=== PATIENT | female | born 1960 | race Hispanic/Latino ===

== ENCOUNTER 2017-10-18 06:55 | Inpatient (IN) | payer MEDICARE ==
[2017-10-15 16:05] VITALS: BP 119/77
[2017-10-15 16:54] LABS: BILIRUBIN,URINE Negative (NEGATIVE); COLOR,URINE Yellow (YELLOW); GLUCOSE, URINE (UA) Negative (NEGATIVE); KETONES,URINE Negative (NEGATIVE); LEUKOCYTE ESTERASE ,URINE Small (NEGATIVE); NITRATE,URINE Negative (NEGATIVE); OCCULT BLOOD,URINE Small (NEGATIVE); PH,URINE 5.5 (5.0-8.0); PROTEIN,URINE Negative (NEGATIVE); UROBILINOGEN,URINE 0.2 mg/dL (0.2-1.0)
[2017-10-15 16:55] LABS: APPEARANCE,URINE CLEAR (CLEAR)
[2017-10-15 18:00] LABS: BACTERIA,URINE Rare /HPF (None Seen); SQUAMOUS EPITHELIAL CELL,UR Rare /LPF (0-2); WBC,URINE 0-1 /HPF (0-1)
[~2017-10-18] VITALS: Ht 151.1 cm; Wt 82.0 kg
[2017-10-18] VITALS (21 sets, daily range): BP systolic 99–143; BP diastolic 40–89
[~2017-10-18 06:55] MED LIST: ALPR0.5T8 PO; AMLO5TAB2 PO; CEFAZOLIN SODIUM 1 GM VIAL IVP SCH; CIPR-245 PO; CITA-107 PO; FLUT16H NASAL; HYDR12.54 PO; MECL-111 PO; OMEP40CA37 PO; OXYC10TA48 PO; PRAV10TA39 PO; SOLI5 PO; TOPI25TA48 PO; ZOLP10TA6 PO
[2017-10-18] MEDS ORDERED: LACTATED RINGERS 1000ML 1,000 ML IV ONE (08:10)
[2017-10-18] MEDS ORDERED: CELECOXIB 200 MG CAP ONE (08:22)
[2017-10-18] MEDS ORDERED: ACETAMINOPHEN EXTRA STRENGTH 500 MG TABLET ONE (08:22)
[2017-10-18] MEDS ORDERED: KETOROLAC TROMETHAMINE 15MG/ML ONE (08:22)
[2017-10-18] MEDS ORDERED: GLYCOPYRROLATE 0.2 MG/ML 5 ML VIAL ONE (09:50)
[2017-10-18] MEDS ORDERED: LIDOCAINE PF 2% 5ML ABBOJECT ONE (09:50)
[2017-10-18] MEDS ORDERED: DEXAMETHASONE SOD PHOSPHATE 10MG/ML 1ML VIAL ONE (09:50)
[2017-10-18] MEDS ORDERED: MIDAZOLAM HCL 1 MG/ML 2ML VIAL ONE (09:51)
[2017-10-18] MEDS ORDERED: PROPOFOL 10 MG/ML 20ML VIAL IV ONE (09:51)
[2017-10-18] MEDS ORDERED: FENTANYL CITRATE PF 50 MCG/1 ML 2ML VIAL ONE (09:51)
[2017-10-18] MEDS ORDERED: CEFAZOLIN SODIUM 1 GM VIAL ONE (09:55)
[2017-10-18] MEDS ORDERED: TRANEXAMIC ACID 1000MG/10ML IV ONE (11:34)
[2017-10-18] MEDS: SODIUM CHLORIDE 0.9% 1000ML 1,000 ML IV SCH ×2 (11:49→21:59)
[2017-10-18] MEDS: PSYLLIUM SEED 1 EACH PACKET PO SCH (12:00)
[2017-10-18] MEDS ORDERED: FERROUS FUMARATE 324 MG TABLET PO PRN (12:00)
[2017-10-18] MEDS ORDERED: OXYCODONE HCL 5 MG TAB PO PRN (12:00)
[2017-10-18] MEDS ORDERED: TEMAZEPAM 15 MG CAPSULE PO PRN (12:00)
[2017-10-18] MEDS ORDERED: POTASSIUM CHLORIDE 10% ELIXIR 20 MEQ/15 ML UDCUP PO PRN (12:00)
[2017-10-18] MEDS ORDERED: DIPHENHYDRAMINE HCL 25 MG CAPSULE PO PRN (12:00)
[2017-10-18] MEDS ORDERED: LIDOCAINE HCL-MPF 1% 2ML VIAL IVP PRN (12:00)
[2017-10-18] MEDS ORDERED: KETOROLAC TROMETHAMINE 15MG/ML IV PRN (12:00)
[2017-10-18] MEDS ORDERED: POTASSIUM CHLORIDE 20MEQ/100ML 100 ML IV PRN (12:00)
[2017-10-18] MEDS ORDERED: TRAMADOL HCL 50 MG TABLET PO PRN (12:00)
[2017-10-18] MEDS ORDERED: PROMETHAZINE HCL 25 MG/ML 1ML AMPULE IM PRN (12:00)
[2017-10-18] MEDS: ACETAMINOPHEN 325 MG TAB PO SCH ×2 (12:00→18:01)
[2017-10-18] MEDS ORDERED: DiphenhydrAMINE HCL 50 MG/ML VIAL IVP PRN (12:00)
[2017-10-18] MEDS ORDERED: CALCIUM CARBONATE 500 MG TABLET PO PRN (12:00)
[2017-10-18] MEDS ORDERED: MEPERIDINE-PF 25 MG/ML SYG ONE (12:31)
[2017-10-18] MEDS ORDERED: MECLIZINE HCL 25 MG TABLET PO PRN (15:00)
[2017-10-18] MEDS: INSULIN HUMULIN R 100 UNIT/ML 3ML SQ SCH ×2 (16:30→21:00)
[2017-10-18] MEDS ORDERED: CEFAZOLIN 2GM / 50 ML 50 ML IV SCH (17:00)
[2017-10-18] MEDS: CEFAZOLIN SODIUM 1 GM VIAL IVP SCH (18:00)
[2017-10-18] MEDS: PREGABALIN 25 MG CAP PO SCH (20:09)
[2017-10-18] MEDS: ASPIRIN 325 MG TABLET PO SCH (20:09)
[2017-10-18] MEDS: CELECOXIB 200 MG CAP PO SCH (20:09)
[2017-10-18] MEDS: FAMOTIDINE 20MG TAB 20 MG TAB PO SCH (20:09)
[2017-10-18] MEDS ORDERED: TOPIRAMATE 25 MG TABLET PO SCH (21:00)
[2017-10-18] MEDS ORDERED: SOLIFENACIN SUCCINATE 5 MG PO SCH (21:00)
[2017-10-18] MEDS ORDERED: **HM**Pravastatin Sodium 10 MG PO SCH (21:00)
[2017-10-18] MEDS ORDERED: ZOLPIDEM TARTRATE 5 MG TAB PO SCH (21:00)
[2017-10-18] MEDS ORDERED: ALPRAZOLAM 0.5 MG TABLET PO SCH (21:00)
[2017-10-19] MEDS ORDERED: WATER FOR INJECTION,STERILE 5 ML VIAL ONE (00:34)
[2017-10-19] MEDS: CEFAZOLIN SODIUM 1 GM VIAL IVP SCH (00:38)
[2017-10-19] MEDS: ACETAMINOPHEN 325 MG TAB PO SCH ×4 (00:39→17:57)
[2017-10-19 04:39] VITALS: BP 134/86
[2017-10-19 05:30] LABS: CREATININE 0.6 mg/dL (0.5-1.5); POTASSIUM 3.5 mmol/L (3.5-5.1)
[2017-10-19] MEDS: INSULIN HUMULIN R 100 UNIT/ML 3ML SQ SCH ×3 (05:41→16:30)
[2017-10-19 07:19] LABS: HEMATOCRIT 37.9 % (36-48); MEAN CORPUSCULAR HEMOGLOBIN 27.3 pg (27.0-33.0); MEAN CORPUSCULAR HGB CONC 33.6 g/dL (32.0-36.0); MEAN CORPUSCULAR VOLUME 81.5 fL (79-99); PLATELET COUNT (AUTO) 319 K/uL (130-400); RED BLOOD CELL COUNT(AUTO) 4.65 MIL/uL (4.00-5.50); RED CELL DISTRIBUTION WIDTH 13.1 % (11.0-15.5); WHITE BLOOD COUNT (AUTO) 13.8 K/uL (4.8-10.8)
[2017-10-19] MEDS: SODIUM CHLORIDE 0.9% 1000ML 1,000 ML IV SCH (07:49)
[2017-10-19 08:25] VITALS: BP 144/83
[2017-10-19] MEDS ORDERED: PANTOPRAZOLE SODIUM 40 MG TABLET.DR PO SCH (09:00)
[2017-10-19] MEDS ORDERED: AMLODIPINE BESYLATE 5 MG TAB PO SCH (09:00)
[2017-10-19] MEDS ORDERED: HYDROCHLOROTHIAZIDE 25 MG TABLET PO SCH (09:00)
[2017-10-19] MEDS ORDERED: POLYETHYLENE GLYCOL 3350 17 GM POWD.PACK PO SCH (09:00)
[2017-10-19] MEDS ORDERED: CITALOPRAM 20 MG TABLET PO SCH (09:00)
[2017-10-19] MEDS: PREGABALIN 25 MG CAP PO SCH (09:16)
[2017-10-19] MEDS: POTASSIUM CHLORIDE 20 MEQ ERTAB PO PRN ×2 (09:16→12:39)
[2017-10-19] MEDS: ASPIRIN 325 MG TABLET PO SCH (09:16)
[2017-10-19] MEDS: FAMOTIDINE 20MG TAB 20 MG TAB PO SCH (09:17)
[2017-10-19] MEDS: CELECOXIB 200 MG CAP PO SCH (09:17)
[2017-10-19 11:25] VITALS: BP 129/76
[2017-10-19] MEDS: PSYLLIUM SEED 1 EACH PACKET PO SCH (12:40)
[2017-10-19] MEDS: OXYCODONE HCL 5 MG TAB PO PRN ×2 (12:50→17:59)
[2017-10-19 16:27] VITALS: BP 126/74
[2017-10-19] MEDS ORDERED: ASPI-1012 PO (18:42)
[2017-10-20] MEDS ORDERED: BISACODYL 5 MG TABLET.DR PO PRN (12:00)
[2017-10-21] MEDS ORDERED: BISACODYL 10 MG SUPP.RECT RC PRN (12:00)
== END 2017-10-19 20:30 | disposition home health service (06) | DRG 465 ==
LOC: EDBD → DAHIP 06:55 → 4AH 12:47
PROVIDERS: ADMIT Orthopaedic Surgery; ATTEND Orthopaedic Surgery
PROC: 0SPC0JZ Removal of Synthetic Substitute from Right Knee Joint, Open Approach (ICD-10-PCS; principal; 2017-10-18)
DX: T84.092A Other mechanical complication of internal right knee prosthesis, initial encounter (principal); E66.9 Obesity, unspecified; E78.5 Hyperlipidemia, unspecified; I10 Essential (primary) hypertension; K21.9 Gastro-esophageal reflux disease without esophagitis; F41.9 Anxiety disorder, unspecified; F32.9 Major depressive disorder, single episode, unspecified; G89.29 Other chronic pain; Y83.8 Other surgical procedures as the cause of abnormal reaction of the patient, or of later complication, without mention of misadventure at the time of the procedure; Z68.35 Body mass index [BMI] 35.0-35.9, adult; Y92.89 Other specified places as the place of occurrence of the external cause; Z96.652 Presence of left artificial knee joint
CPT/HCPCS: 36415; 80048; 81001; 82948; 85027; 85651; 87070; 87076; 87205; 88300; 89051; 96374; A4218; C1713; J0690; J1100; J1885; J2001; J2175; J2250; J2704; J3010; J3490; J7030; J7120

== ENCOUNTER → 2019-05-17 15:45 | Inpatient (IN) | payer MEDICARE ==
[2017-10-18 18:44] LABS: APPEARANCE BODY FLUID CLOUDY (CLEAR); COLOR,BODY FLUID YELLOW (LT YELLOW); SPECIMENTYPE,BODY FLUID SYNOVIAL
[2017-10-18 18:47] LABS: BODY FLUID RBC 5040 /cu. mm.; BODY FLUID WBC 2960 /cu. mm.
[2017-10-18 18:48] LABS: BF BASOPHIL 0 %; BF EOSINOPHIL 0 %; BF LYMPHOCYTE 11 %; BF MONOCYTE 4 %
[2019-05-12 14:10] VITALS: BP 109/68
[2019-05-12 14:12] LABS: BASOPHILS % (AUTO) 1.2 % (0.0-5.0); EOSINOPHILS % (AUTO) 0.6 % (0.0-8.0); HEMATOCRIT 38.6 % (36-48); LYMPHOCYTES % (AUTO) 26.7 % (21.0-51.0); MEAN CORPUSCULAR HEMOGLOBIN 28.5 pg (27.0-33.0); MEAN CORPUSCULAR HGB CONC 33.7 g/dL (32.0-36.0); MEAN CORPUSCULAR VOLUME 84.5 fL (79-99); MONOCYTES % (AUTO) 8.2 % (3.0-13.0); NEUTROPHILS % (AUTO) 63.3 % (40.0-77.0); PLATELET COUNT (AUTO) 281 K/uL (130-400); RED BLOOD CELL COUNT(AUTO) 4.57 MIL/uL (4.00-5.50); RED CELL DISTRIBUTION WIDTH 13.4 % (11.0-15.5); WHITE BLOOD COUNT (AUTO) 7.6 K/uL (4.8-10.8)
[2019-05-12 14:14] LABS: APPEARANCE,URINE CLEAR (CLEAR); BILIRUBIN,URINE NEGATIVE (NEGATIVE); COLOR,URINE YELLOW (YELLOW); GLUCOSE, URINE (UA) NEGATIVE (NEGATIVE); KETONES,URINE 5 mg/dL (NEGATIVE); LEUKOCYTE ESTERASE ,URINE NEGATIVE (NEGATIVE); NITRATE,URINE NEGATIVE (NEGATIVE); OCCULT BLOOD,URINE NEGATIVE (NEGATIVE); PROTEIN,URINE NEGATIVE (NEGATIVE)
[2019-05-12 14:20] LABS: CREATININE 0.9 mg/dL (0.5-1.5); POTASSIUM 4.7 mmol/L (3.5-5.1)
[2019-05-12 14:22] LABS: BACTERIA,URINE Rare /HPF (None Seen); HYALINE CASTS, URINE 0-1 /LPF (0-1 /LPF); MUCUS,URINE Rare LPF (None Seen); RBC,URINE 0-1 /HPF (0-1); SQUAMOUS EPITHELIAL CELL,UR Rare /HPF (0-2)
[2019-05-12 14:23] LABS: INR 0.95 (0.85-1.15)
--- NOTE | 2019-05-12 17:56 | NUR ---
LABS INFORMED DR. RAMOS OF ABNORMAL UA. NO ORDERS RECEIVED. PROCEED WITH PLANNED PROCEDURE.
[2019-05-15] VITALS (23 sets, daily range): BP systolic 14–117; BP diastolic 58–84
[2019-05-15] MEDS: CEFAZOLIN SODIUM 1 GM VIAL IVP SCH ×4 (06:00→23:53)
[2019-05-15] MEDS: SODIUM CHLORIDE 0.9% 1000ML 1,000 ML IV SCH ×2 (11:30→21:48)
[2019-05-15] MEDS: ACETAMINOPHEN EXTRA STRENGTH 500 MG TABLET PO SCH ×2 (11:30→19:46)
[2019-05-15] MEDS: OXYCODONE HCL 5 MG TAB PO PRN ×2 (17:16→21:20)
[2019-05-15] MEDS: PREGABALIN 25 MG CAP PO SCH (19:46)
[2019-05-15] MEDS: ZOLPIDEM TARTRATE 5 MG TAB PO SCH (19:46)
[2019-05-15] MEDS: CELECOXIB 200 MG CAP PO SCH (19:46)
[2019-05-15] MEDS: ALPRAZOLAM 0.5 MG TABLET PO SCH (19:46)
[2019-05-15] MEDS: TOPIRAMATE 25 MG TABLET PO SCH (19:48)
[2019-05-16 00:12] VITALS: BP 106/58
[2019-05-16] MEDS: OXYCODONE HCL 5 MG TAB PO PRN ×5 (01:29→21:36)
[2019-05-16] MEDS: ACETAMINOPHEN EXTRA STRENGTH 500 MG TABLET PO SCH ×3 (03:14→19:26)
[2019-05-16 04:13] VITALS: BP 133/76
[2019-05-16 05:08] LABS: HEMATOCRIT 28.5 % (36-48); MEAN CORPUSCULAR HEMOGLOBIN 28.4 pg (27.0-33.0); MEAN CORPUSCULAR HGB CONC 33.7 g/dL (32.0-36.0); MEAN CORPUSCULAR VOLUME 84.4 fL (79-99); PLATELET COUNT (AUTO) 209 K/uL (130-400); RED BLOOD CELL COUNT(AUTO) 3.37 MIL/uL (4.00-5.50); RED CELL DISTRIBUTION WIDTH 13.7 % (11.0-15.5)
[2019-05-16 05:37] LABS: CREATININE 0.5 mg/dL (0.5-1.5); POTASSIUM 3.2 mmol/L (3.5-5.1)
[2019-05-16] MEDS: CALCIUM CARBONATE 500 MG TABLET PO PRN ×2 (06:23→19:26)
[2019-05-16] MEDS: POTASSIUM CHLORIDE 20 MEQ ERTAB PO PRN ×3 (06:24→17:30)
[2019-05-16] MEDS: SODIUM CHLORIDE 0.9% 1000ML 1,000 ML IV SCH (06:24)
[2019-05-16] MEDS: **HM** VIT D3 5000 UNITS PO SCH (07:21)
[2019-05-16] MEDS: PREGABALIN 25 MG CAP PO SCH ×2 (08:01→19:25)
[2019-05-16] MEDS: CELECOXIB 200 MG CAP PO SCH ×2 (08:01→19:26)
[2019-05-16] MEDS: PANTOPRAZOLE SODIUM 40 MG TABLET.DR PO SCH (08:01)
[2019-05-16] MEDS: CYANOCOBALAMIN (VITAMIN B-12) 1,000 MCG TABLET PO SCH (08:01)
[2019-05-16] MEDS: TOPIRAMATE 25 MG TABLET PO SCH ×2 (08:01→19:26)
[2019-05-16] MEDS: CITALOPRAM 20 MG TABLET PO SCH (08:01)
[2019-05-16] MEDS: POLYETHYLENE GLYCOL 3350 17 GM POWD.PACK PO SCH (08:02)
[2019-05-16] MEDS: ENOXAPARIN SODIUM 30 MG/0.3 ML SQ SCH (08:02)
[2019-05-16 08:34] VITALS: BP 142/89
[2019-05-16 11:30] VITALS: BP 103/63
--- NOTE | 2019-05-16 11:30 | NUR ---
INITIAL AND REFERRAL MET W PT AND DAUGHTER PT S/P SHOULDER SURGERY LIVES [place], LUCIA SANTANA ADLS, DOES NOT USE A WALKER,DOES NOT DRIVE, DAUGHTER SUPPLIES TANSPORT, ADDRESS AND PHONE NUMBERS UPDATED IN SYSTEM, REFERRAL TO [facility] AND CALLBACK REC'D THAT THEY WILL ACCEPT PT Addendum: 05/17/19 at 1999 by SAURAV SNELL RN CM Amended: Links added.
[2019-05-16 16:04] VITALS: BP 99/59
[2019-05-16] MEDS: ZOLPIDEM TARTRATE 5 MG TAB PO SCH (19:26)
[2019-05-16] MEDS: ALPRAZOLAM 0.5 MG TABLET PO SCH (19:26)
[2019-05-16 20:06] VITALS: BP 109/62
[~2019-05-17] VITALS: Ht 149.9 cm; Wt 64.1 kg
[2019-05-17 00:12] VITALS: BP 102/62
[2019-05-17] MEDS: OXYCODONE HCL 5 MG TAB PO PRN ×3 (00:54→11:03)
[2019-05-17] MEDS: ACETAMINOPHEN EXTRA STRENGTH 500 MG TABLET PO SCH ×2 (02:02→11:30)
[2019-05-17 04:12] VITALS: BP 109/68
[2019-05-17 07:59] VITALS: BP 108/64
[2019-05-17] MEDS: **HM** VIT D3 5000 UNITS PO SCH (09:00)
[2019-05-17] MEDS: CITALOPRAM 20 MG TABLET PO SCH (11:04)
[2019-05-17] MEDS: CELECOXIB 200 MG CAP PO SCH (11:04)
[2019-05-17] MEDS: PANTOPRAZOLE SODIUM 40 MG TABLET.DR PO SCH (11:04)
[2019-05-17] MEDS: PREGABALIN 25 MG CAP PO SCH (11:04)
[2019-05-17] MEDS: CYANOCOBALAMIN (VITAMIN B-12) 1,000 MCG TABLET PO SCH (11:04)
[2019-05-17] MEDS: TOPIRAMATE 25 MG TABLET PO SCH (11:05)
[2019-05-17] MEDS: POLYETHYLENE GLYCOL 3350 17 GM POWD.PACK PO SCH (11:05)
[2019-05-17] MEDS: ENOXAPARIN SODIUM 30 MG/0.3 ML SQ SCH (11:07)
[2019-05-17 11:23] VITALS: BP 104/69
--- NOTE | 2019-05-17 14:00 | NUR ---
DISCHARGE DISCHARGE TEACHING PROVIDED TO PATIENT REGARDING DR. RAMOS DISCHARGE ORDERS (DRESSING CHANGE, ARM SLING USE WHEN AMBULATING, KEEP DRESSING DRY AND INTACT, CONTINUE HOME MEDICATIONS PRESCRIBED, DISCHARGE ACTIVITY). INFORMED PATIENT OF SCHEDULED F/U APPT WIT DR. RAMOS. PATIENT VERBALIZED UNDERSTANDING OF DISCHARGE ORDERS. PERFORMED LEFT SHOULDER INCISION DRESSING CHANGE AND REMOVED LEFT SHOULD HEMOVAC DRESSING. HEMOVAC REMOVED, NO RESISTANCE NOTED UPON REMOVAL, DRAIN TIP INTACT. LEFT SHOULDER INCISION APPROXIMATED AND ASYMPTOMATIC, CLEANSED WITH BETADINE, COVERED WITH NONADHERENT GAUZE AND SECURED WITH TEGADERM. REPLACED LEFT ARM SLING AFTER DRESSING CHANGE. REMOVED 20GIV FROM RIGHT HAND, CATHETER TIP INTACT. NURSE REPORT GIVEN TO [facility] OF [facility]. KRISTA PIERCE INFORMED OF DR. RAMOS DISCHARGE ORDERS. FAXED DR. RAMOS DISCHARGE ORDERS TO [facility].
[~2019-05-17 15:45] MED LIST changes: +ACETAMINOPHEN EXTRA STRENGTH 500 MG TABLET ONE; -AMLO5TAB2 PO; +BISACODYL 10 MG SUPP.RECT RC PRN; +CALC-866 PO; +CEFAZOLIN SODIUM 1 GM VIAL IRRIG ONE; -CEFAZOLIN SODIUM 1 GM VIAL IVP SCH; +CEFAZOLIN SODIUM 1 GM VIAL ONE; +CELECOXIB 200 MG CAP ONE; -CIPR-245 PO; +DEXAMETHASONE SOD PHOSPHATE 10MG/ML 1ML VIAL ONE; +DiphenhydrAMINE HCL 50 MG/ML VIAL IVP PRN; +EPHEDRINE SULFATE 50 MG/ML AMPULE ONE; +FE FUMARATE/FA/MV, MIN COMB#15 1 TAB PO PRN; +FENTANYL CITRATE PF 50 MCG/1 ML 2ML VIAL ONE; -FLUT16H NASAL; +GLYCOPYRROLATE 1 MG/5 ML SYRINGE ONE; -HYDR12.54 PO; +KETOROLAC TROMETHAMINE 15MG/ML IV PRN; +LABETALOL HCL 5 MG/ML 20ML VIAL IV ONE; +LACTATED RINGERS 1000ML 1,000 ML IV ONE; +LIDOCAINE HCL-MPF 1% 2ML VIAL IV PRN; +LIDOCAINE PF 2% 5ML ABBOJECT ONE; +MECLIZINE HCL 25 MG TABLET PO PRN; +METOCLOPRAMIDE 10 MG/2 ML VIAL ONE; +MIDAZOLAM HCL 1 MG/ML 2ML VIAL ONE; +NEOSTIGMINE 5MG/5ML SYR IV ONE; +OMEP40CA13 PO; -OMEP40CA37 PO; +ONDANSETRON HCL 4 MG/2 ML VIAL IVP PRN; +ONDANSETRON HCL 4 MG/2 ML VIAL ONE; +OXYCODONE HCL 10 MG TAB.SR.12H PO ONE; +OXYCODONE HCL 5 MG TAB PO PRN; +POTASSIUM CHLORIDE 10% ELIXIR 20 MEQ/15 ML UDCUP PO PRN; +POTASSIUM CHLORIDE 20MEQ/100ML 100 ML IV PRN; -PRAV10TA39 PO; +PROPOFOL 10 MG/ML 20ML VIAL IV ONE; +ROCURONIUM 10MG/1ML SYR 10 MG/ML ML ONE; +ROPIVACAINE 0.5% 5MG/ML 30ML IJ ONE; -SOLI5 PO; +SUCCINYLCHOLINE 200MG/10ML SYR ONE; +TRAMADOL HCL 50 MG TABLET PO PRN; +TRANEXAMIC ACID 1000MG/10ML IV ONE; +VITAMIN B12 PO
== END | disposition home health service (06) | DRG 483 ==
LOC: EDBD 10-15 15:30 → EDSTATUS 10-15 15:30 → MERGE 10-18 11:00 → DAHIP 05-15 07:03 → 4AH 05-15 12:36
PROVIDERS: ADMIT Orthopaedic Surgery; ATTEND Orthopaedic Surgery
PROC: 0RRK00Z Replacement of Left Shoulder Joint with Reverse Ball and Socket Synthetic Substitute, Open Approach (ICD-10-PCS; principal; 2019-05-15 08:31)
DX: M12.812 Other specific arthropathies, not elsewhere classified, left shoulder (principal); M75.102 Unspecified rotator cuff tear or rupture of left shoulder, not specified as traumatic; I10 Essential (primary) hypertension; E78.5 Hyperlipidemia, unspecified; F41.9 Anxiety disorder, unspecified; F32.9 Major depressive disorder, single episode, unspecified; K21.9 Gastro-esophageal reflux disease without esophagitis; E66.9 Obesity, unspecified; Z68.28 Body mass index [BMI] 28.0-28.9, adult; Z98.51 Tubal ligation status; G89.29 Other chronic pain
CPT/HCPCS: 36415; 73030; 80048; 81001; 85025; 85027; 85610; 85651; 87070; 87076; 87205; 88304; 88311; 89051; 96374; 97039; A4565; C1713; G0378; J0330; J0690; J1100; J1650; J2001; J2250; J2405; J2704; J2710; J2765; J2795; J3010; J3490; J7030; J7120

== ENCOUNTER 2020-07-01 09:00 | Inpatient (IN) | payer MEDICARE ==
[~2020-07-01] VITALS: Ht 149.9 cm; Wt 61.8 kg
[~2020-07-01 09:00] MED LIST changes: -ACETAMINOPHEN EXTRA STRENGTH 500 MG TABLET ONE; -BISACODYL 10 MG SUPP.RECT RC PRN; -CALC-866 PO; -CEFAZOLIN SODIUM 1 GM VIAL IRRIG ONE; -CEFAZOLIN SODIUM 1 GM VIAL ONE; -CELECOXIB 200 MG CAP ONE; -CITA-107 PO; -DEXAMETHASONE SOD PHOSPHATE 10MG/ML 1ML VIAL ONE; -DiphenhydrAMINE HCL 50 MG/ML VIAL IVP PRN; -EPHEDRINE SULFATE 50 MG/ML AMPULE ONE; -FE FUMARATE/FA/MV, MIN COMB#15 1 TAB PO PRN; -FENTANYL CITRATE PF 50 MCG/1 ML 2ML VIAL ONE; -GLYCOPYRROLATE 1 MG/5 ML SYRINGE ONE; -KETOROLAC TROMETHAMINE 15MG/ML IV PRN; -LABETALOL HCL 5 MG/ML 20ML VIAL IV ONE; -LACTATED RINGERS 1000ML 1,000 ML IV ONE; -LIDOCAINE HCL-MPF 1% 2ML VIAL IV PRN; -LIDOCAINE PF 2% 5ML ABBOJECT ONE; -MECL-111 PO; -MECLIZINE HCL 25 MG TABLET PO PRN; -METOCLOPRAMIDE 10 MG/2 ML VIAL ONE; -MIDAZOLAM HCL 1 MG/ML 2ML VIAL ONE; -NEOSTIGMINE 5MG/5ML SYR IV ONE; -OMEP40CA13 PO; -ONDANSETRON HCL 4 MG/2 ML VIAL IVP PRN; -ONDANSETRON HCL 4 MG/2 ML VIAL ONE; -OXYC10TA48 PO; -OXYCODONE HCL 10 MG TAB.SR.12H PO ONE; -OXYCODONE HCL 5 MG TAB PO PRN; -POTASSIUM CHLORIDE 10% ELIXIR 20 MEQ/15 ML UDCUP PO PRN; -POTASSIUM CHLORIDE 20MEQ/100ML 100 ML IV PRN; -PROPOFOL 10 MG/ML 20ML VIAL IV ONE; -ROCURONIUM 10MG/1ML SYR 10 MG/ML ML ONE; -ROPIVACAINE 0.5% 5MG/ML 30ML IJ ONE; -SUCCINYLCHOLINE 200MG/10ML SYR ONE; -TOPI25TA48 PO; -TRAMADOL HCL 50 MG TABLET PO PRN; -TRANEXAMIC ACID 1000MG/10ML IV ONE; -VITAMIN B12 PO
[2020-07-01 10:03] LABS: BASOPHILS % (AUTO) 0.5 % (0.0-5.0); EOSINOPHILS % (AUTO) 3.7 % (0.0-8.0); HEMATOCRIT 35.2 % (36-48); LYMPHOCYTES % (AUTO) 26.6 % (21.0-51.0); MEAN CORPUSCULAR HEMOGLOBIN 27.4 pg (27.0-33.0); MEAN CORPUSCULAR HGB CONC 31.8 g/dL (32.0-36.0); MEAN CORPUSCULAR VOLUME 86.1 fL (79-99); MONOCYTES % (AUTO) 8.1 % (3.0-13.0); NEUTROPHILS % (AUTO) 60.9 % (40.0-77.0); PLATELET COUNT (AUTO) 369 K/uL (130-400); RED BLOOD CELL COUNT(AUTO) 4.09 MIL/uL (4.00-5.50); RED CELL DISTRIBUTION WIDTH 14.1 % (11.0-15.5); WHITE BLOOD COUNT (AUTO) 5.5 K/uL (4.8-10.8)
[2020-07-01 10:17] LABS: CREATININE 0.7 mg/dL (0.5-1.5); POTASSIUM 3.5 mmol/L (3.5-5.1)
[2020-07-01 10:28] LABS: APPEARANCE,URINE Clear (CLEAR); BILIRUBIN,URINE Small (NEGATIVE); COLOR,URINE Dark Yellow (YELLOW); GLUCOSE, URINE (UA) Negative (NEGATIVE); KETONES,URINE Trace mg/dL (NEGATIVE); LEUKOCYTE ESTERASE ,URINE Moderate (NEGATIVE); NITRATE,URINE Negative (NEGATIVE); OCCULT BLOOD,URINE Negative (NEGATIVE); PROTEIN,URINE Trace mg/dL (NEGATIVE)
[2020-07-01 10:31] LABS: INR 0.96 (0.85-1.15); PROTHROMBIN TIME 10.4 SEC (9.6-11.6)
[2020-07-01 11:22] LABS: BACTERIA,URINE Rare /HPF (None Seen); RBC,URINE 0-1 /HPF (0-1); SQUAMOUS EPITHELIAL CELL,UR Rare /HPF (0-2)
[2020-07-03 09:17] VITALS: BP 118/68
[2020-07-03] MEDS ORDERED: ONDA4TAB4 PO (10:05)
[2020-07-03] MEDS ORDERED: CEFT2FRO3 IV (10:05)
[2020-07-03] MEDS ORDERED: APIX2.5T PO (10:05)
[2020-07-03] MEDS ORDERED: OXYC10TA48 PO (10:05)
[2020-07-03] MEDS ORDERED: CELE200 PO (10:05)
[2020-07-03] MEDS ORDERED: TOPI25TA48 PO (10:05)
[2020-07-03] MEDS ORDERED: DULO20CA18 PO (10:05)
[2020-07-03] MEDS ORDERED: TRAM50TA4 PO (10:05)
[2020-07-03] MEDS ORDERED: OMEP20TA2 PO (10:05)
[2020-07-03] MEDS ORDERED: LACT10SO9 PO (10:05)
[2020-07-03] MEDS ORDERED: IMMODIUM PO (10:05)
[2020-07-08] VITALS (19 sets, daily range): BP systolic 105–151; BP diastolic 66–85
[2020-07-08] MEDS ORDERED: CEFAZOLIN SODIUM 1 GM VIAL IVP ONE (08:00)
[2020-07-08] MEDS ORDERED: LACTATED RINGERS 1000ML 1,000 ML IV ONE (09:33)
[2020-07-08] MEDS: CEFAZOLIN SODIUM 1 GM VIAL ONE ×2 (10:30→16:40)
[2020-07-08] MEDS ORDERED: LIDOCAINE PF 2% 5ML ABBOJECT ONE (13:33)
[2020-07-08] MEDS ORDERED: SUCCINYLCHOLINE CHLORIDE 20 MG/ML 10 ML VIAL ONE (13:33)
[2020-07-08] MEDS ORDERED: MIDAZOLAM HCL 1 MG/ML 2ML VIAL ONE (13:34)
[2020-07-08] MEDS ORDERED: GLYCOPYRROLATE 1 MG/5 ML SYRINGE ONE (13:34)
[2020-07-08] MEDS ORDERED: PROPOFOL 10 MG/ML 20ML VIAL IV ONE (13:34)
[2020-07-08] MEDS ORDERED: ONDANSETRON HCL 4 MG/2 ML VIAL ONE (13:34)
[2020-07-08] MEDS ORDERED: NEOSTIGMINE 5MG/5ML SYR IV ONE (13:34)
[2020-07-08] MEDS ORDERED: ROCURONIUM 10MG/1ML SYR 10 MG/ML ML ONE ×2 (13:34→17:00)
[2020-07-08] MEDS ORDERED: DEXAMETHASONE SOD PHOSPHATE 10MG/ML 1ML VIAL ONE (13:34)
[2020-07-08] MEDS ORDERED: FENTANYL CITRATE PF 50 MCG/1 ML 2ML VIAL ONE ×2 (13:35→17:00)
[2020-07-08] MEDS ORDERED: MEPERIDINE-PF 25 MG/ML SYG ONE ×3 (13:37→21:50)
[2020-07-08] MEDS ORDERED: KETOROLAC TROMETHAMINE 15MG/ML IV SCH (14:00)
[2020-07-08] MEDS ORDERED: CELECOXIB 200 MG CAP PO SCH (14:00)
[2020-07-08] MEDS ORDERED: TRANEXAMIC ACID 1000MG/10ML IV SCH ×2 (14:00)
[2020-07-08] MEDS ORDERED: ACETAMINOPHEN EXTRA STRENGTH 500 MG TABLET PO SCH (14:00)
[2020-07-08] MEDS ORDERED: KETOROLAC TROMETHAMINE 30MG/ML ONE (14:13)
[2020-07-08] MEDS ORDERED: ROPIVACAINE 0.5% 5MG/ML 30ML IJ ONE (14:38)
[2020-07-08] MEDS ORDERED: CEFAZOLIN SODIUM 1 GM VIAL ONE ×2 (14:56→20:37)
[2020-07-08] MEDS ORDERED: TRANEXAMIC ACID 1000MG/10ML ONE ×2 (14:57→21:20)
[2020-07-08] MEDS ORDERED: EPHEDRINE SULFATE 50 MG/ML AMPULE ONE (16:20)
[2020-07-08] MEDS ORDERED: CEFTRIAXONE SODIUM 2 GM VIAL IVP ONE (17:50)
[2020-07-08] MEDS ORDERED: CEFTRIAXONE SODIUM 1 GM ONE ×3 (18:18→20:27)
[2020-07-08] MEDS ORDERED: CEFAZOLIN SODIUM 1 GM VIAL IRRIG ONE (18:18)
[2020-07-08] MEDS ORDERED: FENTANYL CITRATE PF 50 MCG/1 ML 5ML AMP IV ONE ×2 (18:53→19:58)
[2020-07-08] MEDS ORDERED: CEFTRIAXONE SODIUM 1 GM IVP ONE (19:00)
[2020-07-08] MEDS ORDERED: OXYCODONE HCL 5 MG TAB PO PRN (21:15)
[2020-07-08] MEDS ORDERED: CALCIUM CARBONATE 500 MG TABLET PO PRN (21:15)
[2020-07-08] MEDS ORDERED: POTASSIUM CHLORIDE 20MEQ/100ML 100 ML IV PRN (21:15)
[2020-07-08] MEDS: ACETAMINOPHEN EXTRA STRENGTH 500 MG TABLET PO SCH (21:15)
[2020-07-08] MEDS ORDERED: POTASSIUM CHLORIDE 20 MEQ ERTAB PO PRN (21:15)
[2020-07-08] MEDS ORDERED: LIDOCAINE HCL-MPF 1% 2ML VIAL IV PRN (21:15)
[2020-07-08] MEDS ORDERED: KETOROLAC TROMETHAMINE 15MG/ML IV PRN (21:15)
[2020-07-08] MEDS ORDERED: ONDANSETRON HCL 4 MG/2 ML VIAL IVP PRN (21:15)
[2020-07-08] MEDS ORDERED: FERROUS FUMARATE 324 MG TABLET PO PRN (21:15)
[2020-07-08] MEDS ORDERED: DiphenhydrAMINE HCL 50 MG/ML VIAL IVP PRN (21:15)
[2020-07-08] MEDS ORDERED: POTASSIUM CHLORIDE 10% ELIXIR 20 MEQ/15 ML UDCUP PO PRN (21:15)
[2020-07-08] MEDS ORDERED: ONDANSETRON 4 MG TABLET PO PRN (22:45)
[2020-07-08] MEDS ORDERED: LOPERAMIDE HCL 2 MG CAP PO PRN (22:45)
[2020-07-08] MEDS ORDERED: LACTULOSE 20 GM/30 ML UDCUP PO PRN (22:45)
[2020-07-09] VITALS (9 sets, daily range): BP systolic 111–142; BP diastolic 63–85
[2020-07-09] MEDS: OXYCODONE HCL 5 MG TAB PO PRN ×4 (00:32→20:16)
[2020-07-09] MEDS: SODIUM CHLORIDE 0.9% 1000ML 1,000 ML IV SCH ×3 (00:33→17:15)
[2020-07-09] MEDS ORDERED: HYDROMORPHONE PCA 10 MG/50 ML 50 ML IV PRN (01:30)
[2020-07-09] MEDS ORDERED: NALOXONE HCL 0.4 MG/1 ML ML IVP PRN (01:30)
[2020-07-09] MEDS ORDERED: HYDROMORPHONE HCL 2 MG/ML VIAL ONE (01:35)
[2020-07-09] MEDS: HYDROMORPHONE HCL 2 MG/ML VIAL IVP PRN ×5 (02:46→07:53)
[2020-07-09 03:23] LABS: APPEARANCE BODY FLUID SLIGHTLY CLOUDY (CLEAR); COLOR,BODY FLUID ORANGE (LT YELLOW); SPECIMENTYPE,BODY FLUID SYNOVIAL
[2020-07-09 03:26] LABS: TOTAL VOLUME,BODY FLUID 5.5 mL
[2020-07-09 03:29] LABS: BODY FLUID WBC 40 /cu. mm.
[2020-07-09 03:31] LABS: BODY FLUID RBC 7501 /cu. mm.
[2020-07-09 03:36] LABS: BF LYMPHOCYTE 54 %; BF MONOCYTE 6 %
[2020-07-09] MEDS: ACETAMINOPHEN EXTRA STRENGTH 500 MG TABLET PO SCH ×3 (04:53→21:15)
[2020-07-09 05:03] LABS: HEMATOCRIT 30.3 % (36-48); MEAN CORPUSCULAR HEMOGLOBIN 27.2 pg (27.0-33.0); MEAN CORPUSCULAR HGB CONC 31.7 g/dL (32.0-36.0); MEAN CORPUSCULAR VOLUME 85.8 fL (79-99); RED BLOOD CELL COUNT(AUTO) 3.53 MIL/uL (4.00-5.50); RED CELL DISTRIBUTION WIDTH 13.8 % (11.0-15.5); WHITE BLOOD COUNT (AUTO) 8.8 K/uL (4.8-10.8)
[2020-07-09 05:15] LABS: CREATININE 0.7 mg/dL (0.5-1.5); POTASSIUM 3.9 mmol/L (3.5-5.1)
[2020-07-09] MEDS: TOPIRAMATE 25 MG TABLET PO SCH (09:20)
[2020-07-09] MEDS: FAMOTIDINE 20MG TAB 20 MG TAB PO SCH ×2 (09:20→20:11)
[2020-07-09] MEDS: CELECOXIB 200 MG CAP PO SCH ×2 (09:21→20:10)
[2020-07-09] MEDS: APIXABAN 2.5 MG TABLET PO SCH ×2 (09:21→20:10)
[2020-07-09] MEDS: POLYETHYLENE GLYCOL 3350 17 GM POWD.PACK PO SCH (09:21)
[2020-07-09] MEDS: CEFTRIAXONE SODIUM 2 GM VIAL IVP SCH (09:21)
[2020-07-09] MEDS: PREGABALIN 25 MG CAP PO SCH ×2 (09:25→20:11)
[2020-07-09] MEDS: TRAMADOL HCL 50 MG TABLET PO PRN (12:02)
[2020-07-09] MEDS: ALPRAZOLAM 0.5 MG TABLET PO SCH (20:10)
[2020-07-09] MEDS: ZOLPIDEM TARTRATE 5 MG TAB PO SCH (20:10)
[2020-07-09] MEDS: **HM** DULOXETINE 20MG PO SCH (20:12)
[2020-07-10] VITALS: BP 119/74
[2020-07-10] MEDS: OXYCODONE HCL 5 MG TAB PO PRN ×3 (03:56→20:26)
[2020-07-10 04:00] VITALS: BP 126/77
[2020-07-10] MEDS: ACETAMINOPHEN EXTRA STRENGTH 500 MG TABLET PO SCH ×3 (05:11→20:27)
[2020-07-10 06:11] LABS: HEMATOCRIT 27.6 % (36-48); MEAN CORPUSCULAR HEMOGLOBIN 27.1 pg (27.0-33.0); MEAN CORPUSCULAR HGB CONC 32.2 g/dL (32.0-36.0); MEAN CORPUSCULAR VOLUME 84.1 fL (79-99); RED BLOOD CELL COUNT(AUTO) 3.28 MIL/uL (4.00-5.50); RED CELL DISTRIBUTION WIDTH 13.8 % (11.0-15.5); WHITE BLOOD COUNT (AUTO) 7.8 K/uL (4.8-10.8)
[2020-07-10 06:17] LABS: CREATININE 0.5 mg/dL (0.5-1.5); POTASSIUM 3.8 mmol/L (3.5-5.1)
[2020-07-10 08:12] VITALS: BP 112/69
[2020-07-10] MEDS: FAMOTIDINE 20MG TAB 20 MG TAB PO SCH (08:29)
[2020-07-10] MEDS: APIXABAN 2.5 MG TABLET PO SCH ×2 (08:29→20:25)
[2020-07-10] MEDS: CEFTRIAXONE SODIUM 2 GM VIAL IVP SCH (08:30)
[2020-07-10] MEDS: PREGABALIN 25 MG CAP PO SCH ×2 (08:30→20:26)
[2020-07-10] MEDS: CELECOXIB 200 MG CAP PO SCH ×2 (08:30→20:26)
[2020-07-10] MEDS: POLYETHYLENE GLYCOL 3350 17 GM POWD.PACK PO SCH (08:30)
[2020-07-10] MEDS: TOPIRAMATE 25 MG TABLET PO SCH (08:33)
[2020-07-10 11:20] VITALS: BP 119/75
[2020-07-10 17:04] VITALS: BP 109/65
[2020-07-10] MEDS: ALPRAZOLAM 0.5 MG TABLET PO SCH (20:25)
[2020-07-10] MEDS: ZOLPIDEM TARTRATE 5 MG TAB PO SCH (20:25)
[2020-07-10 20:46] VITALS: BP 112/66
[2020-07-10] MEDS: **HM** DULOXETINE 20MG PO SCH (21:00)
[2020-07-11] VITALS (7 sets, daily range): BP systolic 93–114; BP diastolic 55–69
[2020-07-11] MEDS: ACETAMINOPHEN EXTRA STRENGTH 500 MG TABLET PO SCH ×3 (05:30→21:15)
[2020-07-11] MEDS: OXYCODONE HCL 5 MG TAB PO PRN ×4 (06:03→20:43)
[2020-07-11 06:11] LABS: HEMATOCRIT 25.9 % (36-48); MEAN CORPUSCULAR VOLUME 84.4 fL (79-99); RED BLOOD CELL COUNT(AUTO) 3.07 MIL/uL (4.00-5.50); RED CELL DISTRIBUTION WIDTH 13.8 % (11.0-15.5); WHITE BLOOD COUNT (AUTO) 5.9 K/uL (4.8-10.8)
[2020-07-11 06:28] LABS: CREATININE 0.5 mg/dL (0.5-1.5); POTASSIUM 3.8 mmol/L (3.5-5.1)
[2020-07-11] MEDS: TRAMADOL HCL 50 MG TABLET PO PRN ×2 (07:38→18:43)
[2020-07-11] MEDS: CEFTRIAXONE SODIUM 2 GM VIAL IVP SCH (09:36)
[2020-07-11] MEDS: APIXABAN 2.5 MG TABLET PO SCH ×2 (09:36→20:42)
[2020-07-11] MEDS: CELECOXIB 200 MG CAP PO SCH ×2 (09:36→20:41)
[2020-07-11] MEDS: PREGABALIN 25 MG CAP PO SCH ×2 (09:36→20:42)
[2020-07-11] MEDS: PANTOPRAZOLE SODIUM 40 MG TABLET.DR PO SCH (09:36)
[2020-07-11] MEDS: TOPIRAMATE 25 MG TABLET PO SCH (09:37)
[2020-07-11] MEDS: POLYETHYLENE GLYCOL 3350 17 GM POWD.PACK PO SCH (09:37)
[2020-07-11] MEDS: ALPRAZOLAM 0.5 MG TABLET PO SCH (20:42)
[2020-07-11] MEDS: ZOLPIDEM TARTRATE 5 MG TAB PO SCH (20:42)
[2020-07-11] MEDS: **HM** DULOXETINE 20MG PO SCH (20:48)
[2020-07-11] MEDS ORDERED: BISACODYL 10 MG SUPP.RECT RC PRN (21:15)
[2020-07-12 03:52] VITALS: BP 93/54
[2020-07-12] MEDS: OXYCODONE HCL 5 MG TAB PO PRN ×3 (05:39→15:44)
[2020-07-12 08:00] VITALS: BP 103/63
[2020-07-12] MEDS: TOPIRAMATE 25 MG TABLET PO SCH (09:00)
[2020-07-12] MEDS: POLYETHYLENE GLYCOL 3350 17 GM POWD.PACK PO SCH (09:09)
[2020-07-12] MEDS: APIXABAN 2.5 MG TABLET PO SCH (09:10)
[2020-07-12] MEDS: CELECOXIB 200 MG CAP PO SCH (09:10)
[2020-07-12] MEDS: CEFTRIAXONE SODIUM 2 GM VIAL IVP SCH (09:10)
[2020-07-12] MEDS: PANTOPRAZOLE SODIUM 40 MG TABLET.DR PO SCH (09:11)
[2020-07-12] MEDS: PREGABALIN 25 MG CAP PO SCH (09:11)
[2020-07-12] MEDS ORDERED: APIX2.5T PO (10:53)
[2020-07-12] MEDS ORDERED: HYDR-4457 PO (10:53)
[2020-07-12] MEDS ORDERED: FERR324T10 PO (10:53)
[2020-07-12 12:00] VITALS: BP 85/47
== END 2020-07-12 16:30 | disposition home health service (06) | DRG 467 ==
LOC: DAHIP 07-08 08:05 → 3AH 07-08 22:50
PROVIDERS: ADMIT Orthopaedic Surgery; ATTEND Orthopaedic Surgery
PROC: 0SRC0JZ Replacement of Right Knee Joint with Synthetic Substitute, Open Approach (ICD-10-PCS; principal; 2020-07-08 16:02)
PROC: 0SPC0EZ Removal of Articulating Spacer from Right Knee Joint, Open Approach (ICD-10-PCS; 2020-07-08 16:02)
PROC: 0QSB04Z Reposition Right Lower Femur with Internal Fixation Device, Open Approach (ICD-10-PCS; 2020-07-08 16:02)
PROC: 0SPC0JZ Removal of Synthetic Substitute from Right Knee Joint, Open Approach (ICD-10-PCS; 2020-07-08 16:02)
DX: Z47.33 Aftercare following explantation of knee joint prosthesis (principal); A02.9 Salmonella infection, unspecified; D64.9 Anemia, unspecified; E78.5 Hyperlipidemia, unspecified; G89.29 Other chronic pain; I10 Essential (primary) hypertension; M06.9 Rheumatoid arthritis, unspecified; Z98.84 Bariatric surgery status; E66.9 Obesity, unspecified; F41.8 Other specified anxiety disorders; Z96.612 Presence of left artificial shoulder joint; Z96.653 Presence of artificial knee joint, bilateral; R53.81 Other malaise; K21.9 Gastro-esophageal reflux disease without esophagitis; Z20.828 Contact with and (suspected) exposure to other viral communicable diseases; Z68.27 Body mass index [BMI] 27.0-27.9, adult; Z98.51 Tubal ligation status; X58.XXXA Exposure to other specified factors, initial encounter; Y93.89 Activity, other specified; Y92.89 Other specified places as the place of occurrence of the external cause; Y99.8 Other external cause status
CPT/HCPCS: 36415; 73564; 80048; 81001; 85025; 85027; 85610; 86850; 86900; 86901; 87070; 87076; 87088; 87205; 87641; 88300; 88305; 89051; 97039; C1776; G0378; J0330; J0690; J0696; J1100; J1170; J1885; J2001; J2175; J2250; J2405; J2704; J2710; J2795; J3010; J3490; J7030; J7120; U0003